=== PATIENT | male | born 1980 | race Caucasian/White ===

== ENCOUNTER 2018-12-16 02:50 | Emergency (ER) | payer BC ==
[2018-12-16] MEDS ORDERED: Morphine 4 MG/ML VIAL (1 ml) 4 MG/ML VIAL IV ONE (04:35)
[2018-12-16] MEDS ORDERED: NS 0.9% 1000 ML** 1,000 ML IV ONE (04:35)
[2018-12-16] MEDS ORDERED: Metoclopramide IV* 5 MG/ML 2 ML VIAL IV SLOW PU ONE (04:35)
[2018-12-16 05:04] LABS: ABS Eosinophils 0.1 10^3/ul (0-0.6); ABS Lymphocytes 1.3 10^3/ul (1.0-4.8); ABS Monocytes 0.6 10^3/ul (0-0.8); ABS Neutrophils 10.7 10^3/ul (1.5-7.7); Eosinophil % 0.4 %; Hematocrit 44 % (42-52); Hemoglobin 15.3 g/dL (14.0-18.0); Lymphocyte % 10.2 %; Mean Corpuscular HGB Conc 35 g/dL (31-36); Mean Corpuscular Hemoglobin 29 pg (27-31); Mean Corpuscular Volume 83 fL (80-94); Mean Platelet Volume 7.7 fL (7.4-10.4); Platelet Count 223 10^3/uL (150-450); Red Blood Count 5.32 10^6 /uL (4.18-5.48); Red Cell Distribution Width 13 % (10-15); White Blood Count 12.7 10^3/uL (3.5-10.8)
[2018-12-16 05:08] LABS: Activated Partial Thrombo Time 32.5 seconds (26.0-38.0); INR 1.07 (0.82-1.09)
--- NOTE | 2018-12-16 05:15 | ED ---
Abdominal Pain/Male - HPI Summary HPI Summary: Patient is a 38 y/o M presenting to ED with complaints of sudden onset RUQ abdominal pain with associated N/V. Sx onset yesterday, 12/15/18, at around 2300. Diarrhea is denied. Patient notes that he has travelled to [facility] in the past few weeks. He states that he has been taking Doxycycline prophylactically for malaria. Patient states that he was told to take a dose daily for a month and that he is finishing up his prescription in the next few days. He denies malaria diagnosis. He states that he had salad for dinner yesterday. Patient denies Hx of gallbladder issues. On triage, pain is rated 6/10, nothing is noted to aggravate/alleviate Sx. Home medications and allergies are reviewed. - History of Current Complaint Chief Complaint: EDAbdPain Stated Complaint: "ABD PAIN" PER PT Time Seen by Provider: 12/16/18 03:17 Hx Obtained From: Patient Onset/Duration: Sudden Onset, Lasting Hours - onset 2300 yesterday, Still Present Timing: Constant, Lasting Hours - onset 2300 yesterday Severity Currently: Moderate Pain Intensity: 6 Pain Scale Used: 0-10 Numeric Location: Discrete At: RUQ Aggravating Factor(s): Nothing Alleviating Factor(s): Nothing Associated Signs And Symptoms: Positive: Nausea, Vomiting. Negative: Fever - on vitals, temp is 96.7 F, Diarrhea - Allergies/Home Medications Allergies/Adverse Reactions: Allergies Allergy/AdvReac Type Severity Reaction Status Date / Time No Known Allergies Allergy Verified 12/16/18 04:21 PMH/Surg Hx/FS Hx/Imm Hx Cardiovascular History: Reports: Hx Hypertension - no medication GI History: Denies: Hx Gall Bladder Disease Sensory History: Denies: Hx Legally Blind, Hx Deafness Opthamlomology History: Denies: Hx Legally Blind EENT History: Denies: Hx Deafness Infectious Disease History: No Infectious Disease History: Reports: Traveled Outside the [place] in Last 30 Days Denies: Hx Clostridium Difficile, Hx Hepatitis, Hx Human Immunodeficiency Virus (HIV), Hx of Known/Suspected MRSA, Hx Shingles, Hx Tuberculosis, Hx Known/ Suspected VRE, Hx Known/Suspected VRSA, History Other Infectious Disease - Family History Known Family History: Negative: Hypertension, Diabetes - Social History Alcohol Use: Daily Alcohol Amount: 1-2 drinks daily Substance Use Type: Reports: None Smoking Status (MU): Former Smoker Length of Time of Smoking/Using Tobacco: 4 years Have You Smoked in the Last Year: No Review of Systems Negative: Fever - on vitals, temp is 96.7 F Positive: Abdominal Pain, Vomiting, Nausea. Negative: Diarrhea All Other Systems Reviewed And Are Negative: Yes Physical Exam - Summary Physical Exam Summary: VITAL SIGNS: Reviewed. GENERAL: Patient is a well-developed and nourished male who is lying comfortable in the stretcher. Patient is not in any acute respiratory distress. HEAD AND FACE: No signs of trauma. No ecchymosis, hematomas or skull depressions. No sinus tenderness. EYES: PERRLA, EOMI x 2, No injected conjunctiva, no nystagmus. EARS: Hearing grossly intact. Ear canals and tympanic membranes are within normal limits. MOUTH: Oropharynx within normal limits. NECK: Supple, trachea is midline, no adenopathy, no JVD, no carotid bruit, no c- spine tenderness, neck with full ROM CHEST: Symmetric, no tenderness at palpation LUNGS: Clear to auscultation bilaterally. No wheezing or crackles. CVS: Regular rate and rhythm, S1 and S2 present, no murmurs or gallops appreciated. ABDOMEN: Soft, RUQ tenderness. No signs of distention. No rebound no guarding, and no masses palpated. Bowel sounds are normal. EXTREMITIES: FROM in all major joints, no edema, no cyanosis or clubbing. NEURO: Alert and oriented x 3. No acute neurological deficits. Speech is normal and follows commands. SKIN: Dry and warm Triage Information Reviewed: Yes Vital Signs On Initial Exam: Initial Vitals Temp Pulse Resp BP Pulse Ox 96.7 F 69 15 167/112 97 12/16/18 03:03 12/16/18 03:03 12/16/18 03:03 12/16/18 03:03 12/16/18 03:03 Vital Signs Reviewed: Yes Diagnostics - Vital Signs Vital Signs Temp Pulse Resp BP Pulse Ox 12/16/18 04:42 69 156/108 95 12/16/18 04:41 18 12/16/18 04:13 68 97 12/16/18 04:12 66 165/111 95 12/16/18 03:03 96.7 F 69 15 167/112 97 - Laboratory Lab Results: Lab Results 12/16/18 Range/Units 04:53 WBC 12.7 H (3.5-10.8) 10^3/uL RBC 5.32 (4.18-5.48) 10^6 /uL Hgb 15.3 (14.0-18.0) g/dL Hct 44 (42-52) % MCV 83 (80-94) fL MCH 29 (27-31) pg MCHC 35 (31-36) g/dL RDW 13 (10-15) % Plt Count 223 (150-450) 10^3/uL MPV 7.7 (7.4-10.4) fL Neut % (Auto) 84.4 % Lymph % (Auto) 10.2 % [place] % (Auto) 4.7 % Eos % (Auto) 0.4 % Baso % (Auto) 0.3 % Absolute Neuts (auto) 10.7 H (1.5-7.7) 10^3/ul Absolute Lymphs (auto) 1.3 (1.0-4.8) 10^3/ul Absolute Monos (auto) 0.6 (0-0.8) 10^3/ul Absolute Eos (auto) 0.1 (0-0.6) 10^3/ul Absolute Basos (auto) 0.0 (0-0.2) 10^3/ul Absolute Nucleated RBC 0.0 10^3/ul Nucleated RBC % 0.0 Result Diagrams: 12/16/18 04:53 12/16/18 04:53 Lab Statement: Any lab studies that have been ordered have been reviewed, and results considered in the medical decision making process. - CT ABD/PEL CT CT Interpretation Completed By: Radiologist Summary of CT Findings: ABD/PEL CT IMPRESSION: 1. Mild dependent atelectasis in the lower lobes. 2. Fatty infiltration of the liver. 3. Otherwise negative CT abdomen/pelvis. THIS REPORT WAS REVIEWED BY DR. ANDERSON Abdominal Pain Male Course/Dx - Course Course Of Treatment: Patient is a 38 y/o M presenting to ED with complaints of sudden onset RUQ abdominal pain with associated N/V. Sx onset yesterday, 12/15/18 , at around 2300. Diarrhea is denied. Patient notes that he has travelled to [facility] in the past few weeks. He states that he has been taking Doxycycline prophylactically for malaria. Patient states that he was told to take a dose daily for a month and that he is finishing up his prescription in the next few days. He denies malaria diagnosis. He states that he had salad for dinner yesterday. Patient denies Hx of gallbladder issues. On physical exam, RUQ tenderness is noted. Labs showed WBC 12.7, absolute neuts 10.7, glucose 144, ALT 74, amylase 48, lipase 13. UA showed trace ketones. During ED course, patient received fluids, morphine 4 mg IV and reglan 10 mg IV SLOW PU. ABD/PEL CT IMPRESSION: 1. Mild dependent atelectasis in the lower lobes. 2. Fatty infiltration of the liver. 3. Otherwise negative CT abdomen/pelvis. Results of labs and tests were discussed with the patient, he will be discharged to home and follow up with PCP. He is agreeable with this. - Diagnoses Provider Diagnoses: Abdominal pain Discharge - Sign-Out/Discharge Documenting (check all that apply): Patient Departure - discharge Patient Received Moderate/Deep Sedation with Procedure: No - Discharge Plan Condition: Stable Disposition: HOME Patient Education Materials: Abdominal Pain (ED) Referrals: [facility] [Outside] - 3 Days Additional Instructions: MONITOR YOUR BLOOD PRESSURE. PLEASE RETURN TO THE ED IMMEDIATELY FOR WORSENING OR CONCERNING SYMPTOMS. FOLLOW UP WITH YOUR PRIMARY CARE PHYSICIAN WITHIN THREE DAYS. - Attestation Statements Document Initiated by Jennifer: Yes Documenting Scribe: RHODA OLSEN Provider For Whom Jennifer is Documenting (Include Credential): SERENITY ANDERSON MD Scribe Attestation: RHODA Kwon, scribed for SERENITY ANDERSON MD on 12/16/18 at 0642. Status of Scribe Document: Ready
[2018-12-16 05:19] LABS: Albumin 4.6 g/dL (3.2-5.2); Albumin/Globulin Ratio 1.7 (1-3); BUN/Creatinine Ratio 14.8 (8-20); C Reactive Protein 2.26 mg/L (<8.01); Calcium 9.5 mg/dL (8.6-10.3); EGFR African American 117.3 (>60); EGFR Non-African American 96.9 (>60); Globulin 2.7 g/dL (2-4); Magnesium 1.9 mg/dL (1.9-2.7); Potassium 3.5 mmol/L (3.5-5.0); Total Bilirubin 0.5 mg/dL (0.2-1.0); Total Protein 7.3 g/dL (6.4-8.9)
[2018-12-16] MEDS ORDERED: Iohexol 300* (CONTRAST) 10 ML SDV IV ONE (05:33)
[2018-12-16 06:33] LABS: Urine Appearance Clear; Urine Bilirubin Negative (Negative); Urine Blood Negative (Negative); Urine Color Straw; Urine Glucose Negative (Negative); Urine Ketones Trace (Negative); Urine Nitrite Negative (Negative); Urine Protein Negative (Negative); Urine Specific Gravity 1.036 (1.010-1.030); Urine Urobilinogen Negative (Negative)
[2018-12-16 06:43] VITALS: BP 150/91
== END 2018-12-16 06:51 | disposition home or self-care (01) ==
LOC: ED 02:50
DX: R10.11 Right upper quadrant pain (principal); R11.2 Nausea with vomiting, unspecified; Z87.891 Personal history of nicotine dependence; I10 Essential (primary) hypertension
CPT/HCPCS: 36415; 74177; 80053; 81003; 82150; 83690; 83735; 85025; 85610; 85730; 86140; 96361; 96374; 96375; 99282; J2270; J2765

== ENCOUNTER 2018-12-16 11:35 | Observation (INO) | payer BC ==
[2018-12-16 13:07] LABS: ABS Basophils 0.1 10^3/ul (0-0.2); ABS Lymphocytes 0.8 10^3/ul (1.0-4.8); ABS Monocytes 0.8 10^3/ul (0-0.8); Hematocrit 46 % (42-52); Lymphocyte % 5.1 %; Mean Corpuscular HGB Conc 35 g/dL (31-36); Mean Corpuscular Hemoglobin 29 pg (27-31); Mean Corpuscular Volume 82 fL (80-94); Mean Platelet Volume 7.6 fL (7.4-10.4); Nucleated Red Blood Cells % 0.1; Platelet Count 244 10^3/uL (150-450); Red Blood Count 5.59 10^6 /uL (4.18-5.48); Red Cell Distribution Width 13 % (10-15); White Blood Count 15.7 10^3/uL (3.5-10.8)
[2018-12-16 14:46] LABS: Albumin 4.7 g/dL (3.2-5.2); Calcium 9.7 mg/dL (8.6-10.3); Potassium 3.9 mmol/L (3.5-5.0); Total Bilirubin 0.8 mg/dL (0.2-1.0)
[2018-12-16 14:52] LABS: Albumin/Globulin Ratio 1.6 (1-3); BUN/Creatinine Ratio 11.6 (8-20); C Reactive Protein 12.15 mg/L (<8.01); EGFR African American 120.4 (>60); EGFR Non-African American 99.5 (>60); Total Protein 7.7 g/dL (6.4-8.9)
[2018-12-16 15:06] LABS: Urine Appearance Clear; Urine Bacteria Absent (Absent); Urine Bilirubin Negative (Negative); Urine Blood 2+ (Negative); Urine Color Yellow; Urine Glucose Negative (Negative); Urine Ketones Negative (Negative); Urine Nitrite Negative (Negative); Urine Protein Negative (Negative); Urine Red Blood Cell 3+(>10/hpf) (Absent); Urine Specific Gravity 1.025 (1.010-1.030); Urine Urobilinogen Negative (Negative); Urine White Blood Cell Trace(0-5/hpf) (Absent)
--- NOTE | 2018-12-16 15:39 | ED ---
Abdominal Pain/Male - HPI Summary HPI Summary: The patient is a 38 y/o M presenting to [facility] accompanied by with a chief complaint of gradual onset nausea and vomiting with abdominal pain in the suprapubic and RLQ regions since 2300 last night. He was in the ED at 0400 this morning for similar symptoms, but the abd pain was in the umbilical region, and since moved towards the RLQ. The sharp pain is currently rated 6/10 in severity , but can intermittently get worse. He additionally c/o decreased appetite and bilateral testicular pain. He denies fever, chills, erythema of eyes, sore throat, CP, SOB, cough, dysuria, hematuria, myalgia, back pain, edema, rash, and dizziness. Hx of HTN. No surgical hx. Former smoker, occasional EtOH, no substance use. Last meal was last night. - History of Current Complaint Chief Complaint: EDAbdPain Stated Complaint: ABD PAIN PER PT Time Seen by Provider: 12/16/18 15:12 Hx Obtained From: Patient Onset/Duration: Gradual Onset, Lasting Hours, Still Present Timing: Intermittent, Lasting Hours Severity Initially: Moderate Severity Currently: Moderate Pain Intensity: 6 Pain Scale Used: 0-10 Numeric Location: Suprapubic Radiates: Yes Radiates to: RLQ Character: Sharp Aggravating Factor(s): Food Alleviating Factor(s): Nothing Associated Signs And Symptoms: Positive: Decreased Appetite, Nausea, Vomiting, Other - POSITIVE: bilateral testicular pain; NEGATIVE: erythema of eyes, sore throat, SOB, cough, dysuria, hematuria, myalgia, back pain, edema, rash, dizziness. Negative: Fever, Cough, Chest Pain, Dizzy, Back Pain, Urinary Symptoms - Allergies/Home Medications Allergies/Adverse Reactions: Allergies Allergy/AdvReac Type Severity Reaction Status Date / Time No Known Allergies Allergy Verified 12/16/18 04:21 PMH/Surg Hx/FS Hx/Imm Hx Endocrine/Hematology History: Denies: Hx Diabetes Cardiovascular History: Reports: Hx Hypertension - no medication Respiratory History: Denies: Hx Asthma GI History: Denies: Hx Gall Bladder Disease History: Denies: Hx Kidney Stones Sensory History: Denies: Hx Legally Blind, Hx Deafness Opthamlomology History: Denies: Hx Legally Blind - Surgical History Surgical History: None Surgery Procedure, Year, and Place: none Infectious Disease History: No Infectious Disease History: Denies: Hx Clostridium Difficile, Hx Hepatitis, Hx Human Immunodeficiency Virus (HIV), Hx of Known/Suspected MRSA, Hx Shingles, Hx Tuberculosis, Hx Known/ Suspected VRE, Hx Known/Suspected VRSA, History Other Infectious Disease, Traveled Outside the [place] in Last 30 Days - Family History Known Family History: Negative: Hypertension, Diabetes - Social History Alcohol Use: Daily Alcohol Amount: 1-2 drinks daily Hx Substance Use: No Substance Use Type: Reports: None Hx Tobacco Use: Yes Smoking Status (MU): Former Smoker Length of Time of Smoking/Using Tobacco: 4 years Have You Smoked in the Last Year: No Review of Systems Negative: Fever, Chills Negative: Erythema Negative: Sore Throat Negative: Chest Pain Negative: Shortness Of Breath, Cough Positive: Abdominal Pain - suprapubic, RLQ, Vomiting, Nausea Positive: other - bilateral testicular pain. Negative: dysuria, hematuria Positive: Other - NEGATIVE: back pain. Negative: Myalgia, Edema Negative: Rash Neurological: Other - NEGATIVE: dizziness All Other Systems Reviewed And Are Negative: Yes Physical Exam - Summary Physical Exam Summary: Constitutional: Well-developed, Well-nourished, Alert. (-) Distressed Skin: Warm, Dry HENT: Normocephalic; Atraumatic Eyes: Conjunctiva normal Neck: Musculoskeletal ROM normal neck. (-) JVD, (-) Stridor, (-) Tracheal deviation Cardio: Rhythm regular, rate normal, Heart sounds normal; Intact distal pulses; The pedal pulses are 2+ and symmetric. Radial pulses are 2+ and symmetric. (-) Murmur Pulmonary/Chest wall: Effort normal. (-) Respiratory distress, (-) Wheezes, (-) Rales Abd: Soft, (+) Exquisite RLQ tenderness, (-) Distension, (-) Guarding, (-) Rebound Musculoskeletal: (-) Edema Lymph: (-) Cervical adenopathy Neuro: Alert, Oriented x3 Psych: Mood and affect Normal Exam: Normal Triage Information Reviewed: Yes Vital Signs On Initial Exam: Initial Vitals Temp Pulse Resp BP Pulse Ox 97.9 F 78 18 136/107 96 12/16/18 11:36 12/16/18 11:36 12/16/18 11:36 12/16/18 11:36 12/16/18 11:36 Vital Signs Reviewed: Yes Diagnostics - Vital Signs Vital Signs Temp Pulse Resp BP Pulse Ox 12/16/18 14:42 100.1 F 95 20 172/107 96 12/16/18 11:36 97.9 F 78 18 136/107 96 - Laboratory Lab Results: Lab Results 12/16/18 12/16/18 12/16/18 Range/Units 12:57 12:57 12:57 WBC 15.7 H (3.5-10.8) 10^3/uL RBC 5.59 H (4.18-5.48) 10^6 /uL Hgb 16.0 (14.0-18.0) g/dL Hct 46 (42-52) % MCV 82 (80-94) fL MCH 29 (27-31) pg MCHC 35 (31-36) g/dL RDW 13 (10-15) % Plt Count 244 (150-450) 10^3/uL MPV 7.6 (7.4-10.4) fL Neut % (Auto) 89.5 % Lymph % (Auto) 5.1 % [place] % (Auto) 4.9 % Eos % (Auto) 0.0 % Baso % (Auto) 0.5 % Absolute Neuts (auto) 14.0 H (1.5-7.7) 10^3/ul Absolute Lymphs (auto) 0.8 L (1.0-4.8) 10^3/ul Absolute Monos (auto) 0.8 (0-0.8) 10^3/ul Absolute Eos (auto) 0.0 (0-0.6) 10^3/ul Absolute Basos (auto) 0.1 (0-0.2) 10^3/ul Absolute Nucleated RBC 0.0 10^3/ul Nucleated RBC % 0.1 Sodium 135 (135-145) mmol/L Potassium 3.9 (3.5-5.0) mmol/L Chloride 100 L (101-111) mmol/L Carbon Dioxide 24 (22-32) mmol/L Anion Gap 11 (2-11) mmol/L BUN 10 (6-24) mg/dL Creatinine 0.86 (0.67-1.17) mg/dL Est GFR ( Amer) 120.4 (>60) Est GFR (Non-Af Amer) 99.5 (>60) BUN/Creatinine Ratio 11.6 (8-20) Glucose 150 H (70-100) mg/dL Lactic Acid 2.2 H* (0.5-2.0) mmol/L Calcium 9.7 (8.6-10.3) mg/dL Total Bilirubin 0.80 (0.2-1.0) mg/dL AST 36 (13-39) U/L ALT 76 H (7-52) U/L Alkaline Phosphatase 44 (34-104) U/L C-Reactive Protein 12.15 H (<8.01) mg/L Total Protein 7.7 (6.4-8.9) g/dL Albumin 4.7 (3.2-5.2) g/dL Globulin 3.0 (2-4) g/dL Albumin/Globulin Ratio 1.6 (1-3) Lipase 16 (11.0-82.0) U/L Urine Color Urine Appearance Urine pH (5-9) Ur Specific [place] (1.010-1.030) Urine Protein (Negative) Urine Ketones (Negative) Urine Blood (Negative) Urine Nitrate (Negative) Urine Bilirubin (Negative) Urine Urobilinogen (Negative) Ur Leukocyte Esterase (Negative) Urine WBC (Auto) (Absent) Urine RBC (Auto) (Absent) Urine Bacteria (Absent) Urine Glucose (Negative) 12/16/18 Range/Units 14:48 WBC (3.5-10.8) 10^3/uL RBC (4.18-5.48) 10^6 /uL Hgb (14.0-18.0) g/dL Hct (42-52) % MCV (80-94) fL MCH (27-31) pg MCHC (31-36) g/dL RDW (10-15) % Plt Count (150-450) 10^3/uL MPV (7.4-10.4) fL Neut % (Auto) % Lymph % (Auto) % [place] % (Auto) % Eos % (Auto) % Baso % (Auto) % Absolute Neuts (auto) (1.5-7.7) 10^3/ul Absolute Lymphs (auto) (1.0-4.8) 10^3/ul Absolute Monos (auto) (0-0.8) 10^3/ul Absolute Eos (auto) (0-0.6) 10^3/ul Absolute Basos (auto) (0-0.2) 10^3/ul Absolute Nucleated RBC 10^3/ul Nucleated RBC % Sodium (135-145) mmol/L Potassium (3.5-5.0) mmol/L Chloride (101-111) mmol/L Carbon Dioxide (22-32) mmol/L Anion Gap (2-11) mmol/L BUN (6-24) mg/dL Creatinine (0.67-1.17) mg/dL Est GFR ( Amer) (>60) Est GFR (Non-Af Amer) (>60) BUN/Creatinine Ratio (8-20) Glucose (70-100) mg/dL Lactic Acid (0.5-2.0) mmol/L Calcium (8.6-10.3) mg/dL Total Bilirubin (0.2-1.0) mg/dL AST (13-39) U/L ALT (7-52) U/L Alkaline Phosphatase (34-104) U/L C-Reactive Protein (<8.01) mg/L Total Protein (6.4-8.9) g/dL Albumin (3.2-5.2) g/dL Globulin (2-4) g/dL Albumin/Globulin Ratio (1-3) Lipase (11.0-82.0) U/L Urine Color Yellow Urine Appearance Clear Urine pH 7.0 (5-9) Ur Specific [place] 1.025 (1.010-1.030) Urine Protein Negative (Negative) Urine Ketones Negative (Negative) Urine Blood 2+ A (Negative) Urine Nitrate Negative (Negative) Urine Bilirubin Negative (Negative) Urine Urobilinogen Negative (Negative) Ur Leukocyte Esterase Negative (Negative) Urine WBC (Auto) Trace(0-5/hpf) (Absent) Urine RBC (Auto) 3+(>10/hpf) A (Absent) Urine Bacteria Absent (Absent) Urine Glucose Negative (Negative) Result Diagrams: 12/16/18 12:57 12/16/18 12:57 Lab Statement: Any lab studies that have been ordered have been reviewed, and results considered in the medical decision making process. - CT Abd/Pel CT CT Interpretation Completed By: Radiologist Summary of CT Findings: 1. Findings consistent with acute appendicitis. 2. Mild hepatomegaly and hepatic steatosis. ED physician has reviewed this report. - Ultrasound No standard instances Ultrasound Interpretation Completed By: Radiologist Summary of Ultrasound Findings: Gallbladder US: 1. Small gallbladder wall polyp. 2. Findings suggestive of fatty infiltration of the liver with focal sparing adjacent to the gallbladder. ED physician has reviewed this report. Re-Evaluation - Re-Evaluation First Eval Re-Evaluation Time: 16:00 Comment: I discussed admission with the patient and his , and they understand and agree. Abdominal Pain Male Course/Dx - Course Course Of Treatment: The patient is a 38 y/o M presenting to [facility] accompanied by with a chief complaint of sharp gradual onset nausea and vomiting with abdominal pain in the suprapubic and RLQ regions since 2300 last night with movement to the RLQ. He additionally c/o decreased appetite and bilateral testicular pain. He denies fever, chills, erythema of eyes, sore throat, CP, SOB , cough, dysuria, hematuria, myalgia, back pain, edema, rash, and dizziness. No surgical hx. Upon physical exam, the patient exhibits exquisite RLQ tenderness. In the ED course, the patient was administered Ns, Zofran, Iohexol (for CT), Mefoxin, and Tyelnol. Blood work reveals WBC of 15.7, RBC of 5.59, abs neuts of 14.0, abs lymphs of 0.8, chloride of 100, glucose of 150, lactic acid of 2.2, ALT of 76, and CRP of 12.15 without any other significant abnormality. UA reveals 2+ blood and 3+ RBC. Gallbladder US reveals small gallbladder wall polyp and fatty infiltration of liver. Abd/Pel CT reveals acute appendicitis, mild hepatomegaly, and hepatic steatosis. At 1545, I discussed the patients case with Dr. Fischer, surgery, and he is made aware of the appendicitis finding , he accepts the patient for admission for acute appendicitis. The patient agrees with admission for surgery, and he understands the need at this time. - Diagnoses Provider Diagnoses: Acute appendicitis - Provider Notifications Discussed Care Of Patient With: Herbert Fischer - surgery Time Discussed With Above Provider: 15:45 Instructed by Provider To: Other - I discussed the patient's case wtih Dr. Fischer, and he is aware of the appendicitis finding. The patient is accepted for admission. Discharge - Sign-Out/Discharge Documenting (check all that apply): Patient Departure - Patient is accepted for admission by Dr. Fischer. Patient Received Moderate/Deep Sedation with Procedure: No - Discharge Plan Condition: Stable Disposition: ADMITTED TO [facility] - Billing Disposition and Condition Condition: STABLE Disposition: Admitted to [facility] - Attestation Statements Document Initiated by Scribe: Yes Documenting Scribe: Luci Ruiz Provider For Whom Scribe is Documenting (Include Credential): Dr. Bowen España MD Scribe Attestation: Luci Kwon scribed for Dr. Bowen España MD on 12/16/18 at 1905. Status of Scribe Document: Ready
[2018-12-16] MEDS ORDERED: NS 0.9% 1000 ML** 1,000 ML IV ONE (15:45)
[2018-12-16] MEDS ORDERED: ceFOXitin 2 GM IVPREMIX* 2 GM/50 ML BAG IVPB ONE (15:45)
[2018-12-16] MEDS ORDERED: Ondansetron INJ* 2 MG/ML VIAL IV ONE (16:07)
[2018-12-16] MEDS ORDERED: Iohexol 300* (CONTRAST) 10 ML SDV IV ONE (16:56)
[2018-12-16] MEDS ORDERED: Acetaminophen TAB* 325 MG PO ONE (17:54)
[2018-12-16] MEDS ORDERED: Bupivacaine 0.5%* 50 ML VIAL ONE (19:00)
[2018-12-16] MEDS ORDERED: Propofol* 10 MG/ML 20 ML BTL ONE (19:15)
[2018-12-16] MEDS ORDERED: Lidocaine 2% PF * 5 ML VIAL ONE (19:15)
[2018-12-16] MEDS ORDERED: Succinylcholine* 20 MG/ML 10 ML VIAL ONE (19:15)
[2018-12-16] MEDS ORDERED: Midazolam* 1 MG/ML 2 ML VIAL (2 MG) ONE (19:16)
[2018-12-16] MEDS ORDERED: fentaNYL* 50 MCG/ML 2 ML VIAL (100 MCG VIAL) ONE ×2 (19:16→20:52)
[2018-12-16] MEDS ORDERED: ceFOXitin 2 GM IVPREMIX* 2 GM/50 ML BAG ONE (19:30)
[2018-12-16] MEDS ORDERED: Rocuronium* 10 MG/ML VIAL ONE (20:04)
[2018-12-16] MEDS ORDERED: Dexamethasone IV* 4 MG/ML 1 ML (4 MG) ONE (20:20)
[2018-12-16] MEDS ORDERED: Ketorolac INJ* 30 MG/ML 1 ML VIAL ONE (20:20)
[2018-12-16] MEDS ORDERED: Metoclopramide IV* 5 MG/ML 2 ML VIAL ONE (20:20)
[2018-12-16] MEDS ORDERED: Ondansetron INJ* 2 MG/ML VIAL ONE (20:20)
[2018-12-16] MEDS ORDERED: Sugammadex * 200 MG/2 ML VIAL IV PUSH ONE (20:23)
[2018-12-16] MEDS ORDERED: Glycopyrrolate IV* 0.2 MG/ML 1 ML VIAL ONE (20:37)
[2018-12-16] MEDS ORDERED: Neostigmine Methylsulfate* 1 MG/ML 10 ML VIAL (1 mg/ml) ONE (20:37)
[2018-12-16] MEDS ORDERED: Acetaminophen TAB* 325 MG PO PRN (21:13)
[2018-12-16] MEDS ORDERED: diPHENhydraMINE IV* 50 MG/ML 1 ml VIAL (BENADRYL) IV PRN (21:13)
[2018-12-16] MEDS ORDERED: fentaNYL* 50 MCG/ML 2 ML VIAL (100 MCG VIAL) IV PRN (21:13)
[2018-12-16] MEDS ORDERED: Naloxone* 0.4 MG/ML 1 ML VIAL IV PRN (21:13)
[2018-12-16] MEDS ORDERED: oxyCODONE TAB* 5 MG TAB PO PRN (21:13)
[2018-12-16] MEDS ORDERED: DiMENhydriNATE IV* 50 MG/ML VIAL IV PUSH PRN (21:13)
[2018-12-16] MEDS ORDERED: Labetalol IV* 5 MG/ML 20 ML VIAL IV PUSH ONE (21:15)
[2018-12-16] MEDS ORDERED: Labetalol IV* 5 MG/ML 20 ML VIAL ONE (21:18)
--- NOTE | 2018-12-16 21:26 | HP ---
CC: Dr. Eliana Palmer at [facility] * ADMISSION HISTORY AND PHYSICAL: DATE OF ADMISSION: 12/16/18 ATTENDING SURGEON: Dr. Herbert Fischer * (YAMILET Funes, dictating). CHIEF COMPLAINT: Abdominal pain. The patient was initially seen in the ED. HISTORY OF PRESENT ILLNESS: This is a generally healthy 38-year-old male who noted onset of upper abdominal pain around 11 p.m. last evening. This was accompanied by nausea and vomiting which seemed to since have subsided. He also reports some fever and chills. The pain had moved from the upper abdomen to the mid abdomen and then eventually to the right lower quadrant where it has remained. He presented to the ED and had an IV contrast only CT scan of the abdomen and pelvis which had noted the presence of fecalith, but no definitive finding of appendicitis or otherwise. He was discharged. His pain persisted and he returned to the ED this time with having an oral and IV contrast CT which does show an enlarged appendix with interstitial stranding in the periappendiceal fat consistent with acute appendicitis. There is no evidence of abscess. The patient states that peak pain was 8/10, and at present it is 5-6/10. He has not had any other similar episodes. He has not had any prior abdominal surgeries. His last bowel movement was yesterday evening and otherwise normal. He had last eaten solid food last evening. There is no suspect food ingestion. He did return from travel to [facility] on 12/01/18 and is still taking doxycycline for malaria prophylaxis. PAST MEDICAL HISTORY: Previously treated for hypertension, but not at present. Migraine headaches. PAST SURGICAL HISTORY: His only previous surgery has been dental extractions. CURRENT MEDICATIONS: Doxycycline 100 mg once daily. DRUG ALLERGIES: None known. FAMILY HISTORY: Negative for anesthesia problems, bleeding, or clotting disorders. SOCIAL HISTORY: The patient is . He has two children. 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 He did smoke for a few years after college, but not since age 23 other than occasional social settings. He drinks on an average 1 to 2 drinks per day. He denies any other recreational drug use. REVIEW OF SYSTEMS: General: No other recent constitutional symptoms other than per the HPI. HEENT: No problems reported. Cardiovascular: No history of chest pain, palpitations, or heart murmur. Previously treated for hypertension, but not at present. Respiratory: No history of asthma, chronic cough, or shortness of breath. GI: As above per HPI. No additions. : I did not enquire specifically about symptoms. Endocrine: No diabetes or thyroid dysfunction. PHYSICAL EXAMINATION GENERAL: A well-nourished, somewhat obese male, in no acute distress. He actually appears somewhat comfortable. Skin warm and dry. No suspicious rashes or lesions. VITAL SIGNS: Height 5 feet 7 inches, weight 200 pounds, BMI 31. Temperature max 100.9, blood pressure 149/93, pulse 96, respirations 24, room air saturation 96%. HEENT: Pupils are equal, round, reactive. EOMs intact. No conjunctival pallor. Oropharynx: Mucous membranes dry. Teeth in good repair. No intraoral lesions. NECK: No lymphadenopathy, thyromegaly, or masses. LUNGS: Clear to auscultation. No rales or wheezes. HEART: Regular rate and rhythm. No murmur appreciated. ABDOMEN: Obese. Bowel sounds present, but somewhat hypoactive. Soft with tenderness in the right lower quadrant with guarding. No palpable mass. The remainder of the abdomen is soft and nontender and without palpable hepatosplenomegaly. No palpable inguinal hernias. GENITALIA: Otherwise not examined. RECTAL: Not done. BACK: No spinous process or CVA tenderness. EXTREMITIES: No edema. NEUROLOGICAL: Grossly intact. LABORATORY DATA: White blood cell count 15,700 with normal differential, hemoglobin 16. Chemistries essentially normal with the exceptions of glucose of 150, lactic acid mildly elevated at 2.2, ALT 76. CRP mildly elevated at 12. Lipase is normal at 16. Urinalysis was remarkable for 2+ blood. CT of the abdomen and pelvis with oral and IV contrast was reviewed personally and shows borderline enlarged appendix with periappendiceal interstitial stranding consistent with acute appendicitis. No abscess noted. IMPRESSION: Acute appendicitis. PLAN: Laparoscopic appendectomy pending confirmation of exam and plan by Dr. Fischer. YAMILET FUNES [id number]/[facility] #: [id number] [facility] HOSPITALAsaf
--- NOTE | 2018-12-16 21:34 | OP ---
DATE OF OPERATION: 12/16/18 - ROOM #349 DATE OF : 80 SURGEON: Herbert Fischer MD. PRE-OP DIAGNOSIS: Appendicitis. POST-OP DIAGNOSIS: Appendicitis. OPERATIVE PROCEDURE: Laparoscopic appendectomy. INDICATIONS FOR PROCEDURE: Appendicitis. Risks including, but not limited to bleeding, infection, injury to intra-abdominal contents including the bowel were explained to the patient who seemed to understand and agreed to the procedure and all questions were answered. DESCRIPTION OF PROCEDURE: In the operating room, in the supine position under general endotracheal anesthesia, the abdomen was prepped and draped in sterile fashion. Time-out was performed indicating correct patient, correct procedure. A 5 mm trocar was placed in the left lower quadrant under direct visualization of the camera using a bladeless Optiview trocar. Pneumoperitoneum was achieved to 15 mmHg. The camera was placed in the abdomen and the abdomen was scanned. There was no obvious injury from trocar placement. A 12 mm infraumbilical and 5 mm suprapubic trocar were placed. The patient was placed in a Trendelenburg position, tilted slightly towards the left. An acutely inflamed appendix was elevated. The base was isolated and divided with a 45 mm stapler. The mesoappendix was divided with another staple load, this time a silver load. The appendix was placed into an Endobag and removed through the umbilical port site. The right lower quadrant was inspected. EBL minimal. Hemostasis was intact. There was no abscess or purulence. The abdomen was scanned. No obvious injury or abnormalities were noted. The omentum was placed over the appendix site/cecum/right lower quadrant. Pneumoperitoneum was released from the abdomen, the trocars were removed, and the skin was closed with Monocryl and glue. He tolerated the procedure well. He was extubated and taken to the Recovery in stable condition. [id number]/[facility] #: [id number] [facility]ENTERAs[facility]
[2018-12-16] MEDS ORDERED: Ondansetron INJ* 2 MG/ML VIAL IV PRN (22:30)
[2018-12-16] MEDS ORDERED: Ibuprofen TAB* 800 MG PO PRN (22:30)
[2018-12-16] MEDS ORDERED: Ibuprofen TAB* 800 MG PO ONE (23:47)
[2018-12-17] MEDS: oxyCODONE/Acetamin 5/325 MG* TAB PO PRN ×2 (01:19→06:21)
--- NOTE | 2018-12-17 01:35 | PN ---
Progress Note - Progress Note Date of Service: 12/17/18 Note: CAT Ca;;: Patient got up for first time since surgery last evening - POD #1 for appendectomy last evening. Lightheaded, dizzy and had syncopal episode along with loose stools. Vitals: BP soft. Required labetolol in PACU for elevated BP. Does not take antihypertensives. 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
[2018-12-17] MEDS ORDERED: NS 0.9% 1000 ML** 1,000 ML IV ONE (02:00)
[2018-12-17] MEDS ORDERED: ceFOXitin 2 GM IVPREMIX* 2 GM/50 ML BAG IVPB ONE (08:00)
--- NOTE | 2018-12-17 09:37 | PN ---
Progress Note - Progress Note Date of Service: 12/17/18 SOAP: Subjective: []flatus/loose bm last night with "vasovagal" event, none since, had breakfast, alittle "bloated and uncomfortable" Objective: [] Temp Pulse Resp BP Pulse Ox 98.2 F 68 16 124/79 95 12/17/18 07:50 12/17/18 07:50 12/17/18 08:21 12/17/18 07:50 12/17/18 07:50 abdomen soft moderate distension, incisional tenderness, incisions cdi Assessment: [] stable, s/p lap appendectomy, slow to recover and get full return bowel fxn Plan: []continue current regimen, dc abx, home later today if continues to improve
[2018-12-17 12:06] VITALS: BP 142/86
--- NOTE | 2018-12-17 13:15 | DS ---
CC: Dr. Eliana Palmer [facility] * DISCHARGE SUMMARY: DATE OF ADMISSION: 12/16/18 DATE OF DISCHARGE: 12/17/18 ATTENDING SURGEON: Dr. Herbert Fischer.* (DICTATED BY YAMILET VILCHIS) HOSPITAL COURSE: The patient was admitted and taken to the operating room on for laparoscopic appendectomy for acute nonruptured appendicitis (see history and physical and operative note for details). The surgery itself was uneventful. It was decided to keep the patient overnight. He did have an event around 2 a.m. when he was getting up and he felt dizzy. The nurse and the patient's helped him sit down in the bed, but he did have a syncopal episode and slid from the bed to the floor and had an episode of diarrhea. He had no injury. He was syncopal for a minute according to the nurses' note. CAT team was called, at which time the patient was already back in bed and conscious and conversing. See separate CAT documentation. Since that time, the patient's vital signs have been stable. When seen on rounds this morning, the patient had still not been up much out of bed and was feeling fairly uncomfortable. Since then, he has had Percocet orally. He tolerated breakfast well and his vital signs have been stable. Last vital signs showed temperature 98.2, blood pressure 124/79, pulse 68, respirations 14, room air saturation 95% (see separate progress note from the same date for exam by Dr. Fischer). IMPRESSION: Status post laparoscopic appendectomy for acute appendicitis, doing well. PLAN: Home today. Instructions were reviewed regarding activity, wound care, and diet. Followup is scheduled for 12/25/18 in our office. DISCHARGE CONDITION: The patient was discharged to home in good condition. YAMILET VILCHIS [id number]/[facility] #: [id number] [facility]ITALAs[facility]
== END 2018-12-17 12:55 | disposition home or self-care (01) ==
LOC: ED 11:35 → OR 18:49 → SSU 21:25
PROVIDERS: ADMIT Surgery; ATTEND Surgery
DX: K37 Unspecified appendicitis (principal); R10.9 Unspecified abdominal pain; R11.2 Nausea with vomiting, unspecified; I10 Essential (primary) hypertension; Z87.891 Personal history of nicotine dependence; N50.812 Left testicular pain; N50.811 Right testicular pain
CPT/HCPCS: 36415; 74177; 76705; 80053; 81003; 81015; 83605; 83690; 85025; 86140; 87086; 88304; 93005; 99283; A9270-GY; G0378; J0330; J0694; J1100; J1885; J2250; J2405; J2704; J2710; J2765; J3010; J3490; Q9967

== ENCOUNTER 2018-12-21 19:33 | Observation (INO) | payer BC ==
--- OUTSIDE RECORDS SUMMARY | 2018-12-21 19:52 | XMS REPORT | Continuity of Care Document ---
:1980 External Reference #:[id number] Author Name Jessica Bartlett Care Team Providers Name Role Phone Herbert Fischer MD Care Team Information Director Product Development Unavailable Payers Date Identification Numbers Payment Provider Subscriber Policy Number: [id number] [employer] [facility] PayID: [id number] [address] [address] [place] [address] Social History Type Date Description Comments Sex Unknown Procedures Date Code Description Status 12/16/2018 10748 Laparoscopy, Surgical, Appendectomy Completed Plan of Treatment Future Appointment(s):12/25/2018 3:30 pm - Evangelina Johns NP at [facility]
--- NOTE | 2018-12-21 20:59 | ED ---
HPI Febrile Illness - HPI Summary HPI Summary: This patient is a 38 year old M presenting to [facility] accompanied by his with a chief complaint of a post-operative fever of 102.2 this evening at home. Patient had an emergency appendectomy on 12/16/18 and was discharged the next day. Reports fatigue for the past few days worsening today with fever. Patient called Dr. Hill, surgeon, who recommended he come to the ED if fever reached 102F. He has taken Motrin at home this morning. Reports mild RLQ abdominal pain that has slightly worsened today since the surgery. Denies vomiting and diarrhea, cough, and sore throat. - History of Current Complaint Chief Complaint: EDFever Time Seen by Provider: 12/21/18 20:41 Hx Obtained From: Patient, Family/Cylinder Dyer Onset/Duration: Started Hours Ago Timing: Constant Temperature: 102.2 F Pain Intensity: 4 Pain Scale Used: 0-10 Numeric Associated Signs and Symptoms: Other: - abdominal pain - Additional Pertinent History Primary Care Physician: CARLOTA - Allergy/Home Medications Allergies/Adverse Reactions: Allergies Allergy/AdvReac Type Severity Reaction Status Date / Time No Known Allergies Allergy Verified 12/16/18 04:21 PMH/Surg Hx/FS Hx/Imm Hx Endocrine/Hematology History: Denies: Hx Diabetes Cardiovascular History: Reports: Hx Hypertension - no medication Respiratory History: Denies: Hx Asthma GI History: Denies: Hx Gall Bladder Disease History: Denies: Hx Kidney Stones Sensory History: Denies: Hx Contacts or Glasses, Hx Legally Blind, Hx Deafness, Hx Hearing Aid Opthamlomology History: Denies: Hx Contacts or Glasses, Hx Legally Blind - Surgical History Surgery Procedure, Year, and Place: 12/16/18 - Appendectomy Infectious Disease History: No Infectious Disease History: Reports: Traveled Outside the [place] in Last 30 Days Denies: Hx Clostridium Difficile, Hx Hepatitis, Hx Human Immunodeficiency Virus (HIV), Hx of Known/Suspected MRSA, Hx Shingles, Hx Tuberculosis, Hx Known/ Suspected VRE, Hx Known/Suspected VRSA, History Other Infectious Disease - Family History Known Family History: Negative: Hypertension, Diabetes - Social History Alcohol Use: Daily Alcohol Amount: A glass of wine with dinner Hx Substance Use: No Substance Use Type: Reports: None Hx Tobacco Use: Yes Smoking Status (MU): Former Smoker Length of Time of Smoking/Using Tobacco: 4 years Have You Smoked in the Last Year: No Review of Systems Positive: Fever Negative: Sore Throat Negative: Cough Positive: Abdominal Pain. Negative: Vomiting, Diarrhea, Nausea All Other Systems Reviewed And Are Negative: Yes Physical Exam - Summary Physical Exam Summary: VITAL SIGNS: Reviewed. GENERAL: Patient is a well-developed and nourished male who is lying comfortable in the stretcher. Patient is not in any acute respiratory distress. HEAD AND FACE: No signs of trauma. No ecchymosis, hematomas or skull depressions. No sinus tenderness. EYES: PERRLA, EOMI x 2, No injected conjunctiva, no nystagmus. EARS: Hearing grossly intact. Ear canals and tympanic membranes are within normal limits. MOUTH: Oropharynx within normal limits. NECK: Supple, trachea is midline, no adenopathy, no JVD, no carotid bruit, no c- spine tenderness, neck with full ROM CHEST: Symmetric, no tenderness at palpation LUNGS: Clear to auscultation bilaterally. No wheezing or crackles. CVS: Regular rate and rhythm, S1 and S2 present, no murmurs or gallops appreciated. ABDOMEN: Soft, RLQ tenderness. No signs of distention. No rebound no guarding, and no masses palpated. Bowel sounds are normal. EXTREMITIES: FROM in all major joints, no edema, no cyanosis or clubbing. NEURO: Alert and oriented x 3. No acute neurological deficits. Speech is normal and follows commands. SKIN: Dry and warm Triage Information Reviewed: Yes Vital Signs On Initial Exam: Initial Vitals Temp Pulse Resp BP Pulse Ox 100.9 F 102 18 146/94 97 12/21/18 19:44 12/21/18 19:44 12/21/18 19:44 12/21/18 19:44 12/21/18 19:44 Vital Signs Reviewed: Yes Diagnostics - Vital Signs Vital Signs Temp Pulse Resp BP Pulse Ox 12/21/18 19:44 100.9 F 102 18 146/94 97 - Laboratory Result Diagrams: 12/21/18 21:31 12/21/18 21:31 Lab Statement: Any lab studies that have been ordered have been reviewed, and results considered in the medical decision making process. - Radiology CXR Radiology Interpretation Completed By: ED Physician Summary of Radiographic Findings: No acute process. Pending offical report. - CT A/P CT CT Interpretation Completed By: Radiologist Summary of CT Findings: Moderate amount of hyperdense fluid below the cecum extending into the upper quadrants bilaterally as well as the pelvis. Dominant collection below the cecum measures up to 4.8 x 4.4 cm. Findings are likely consistent with. hemoperitoneum, somewhat greater than would be expected for 5 days postop. Followup with surgical consult should be considered. ED Physician has reviewed this report. Course/Dx - Course Course Of Treatment: 38 year old M presenting to [facility] accompanied by his with a chief complaint of a post-operative fever of 102.2 this evening at home. Reports mild RLQ abdominal pain that has slightly worsened today since the surgery. Patient is given Tylenol and IVF. UA and bloodwork obtained revealing Hgb of 11.6 and Hct of 33. CT A/P reveals, " Moderate amount of hyperdense fluid below the cecum extending into the upper quadrants bilaterally as well as the pelvis. Dominant collection below the cecum measures up to 4.8 x 4.4 cm. Findings are likely consistent with. hemoperitoneum, somewhat greater than would be expected for 5 days postop. Followup with surgical consult should be considered." Case discussed with Dr. Hill, surgery, who agrees to admit this patient and will begin to place orders. Results and plan discussed with patient. - Diagnoses Provider Diagnoses: Hemoperitoneum - Provider Notifications Discussed Care Of Patient With: Say Hill - surgeon Time Discussed With Above Provider: 12:20 Instructed by Provider To: Admit As Inpatient Discharge - Sign-Out/Discharge Documenting (check all that apply): Patient Departure - admit Patient Received Moderate/Deep Sedation with Procedure: No - Discharge Plan Condition: Stable Disposition: ADMITTED TO [facility] Referrals: Eliana Palmer MD [Primary Care Provider] - - Attestation Statements Document Initiated by Scribe: Yes Documenting Scribe: Kiersten Castillo Provider For Whom Jennifer is Documenting (Include Credential): Flor Dick MD Scribe Attestation: Kiersten Kwon, ashed for Flor Dick MD on 12/22/18 at 0020. Status of Scribe Document: Ready
[2018-12-21] MEDS ORDERED: Acetaminophen TAB* 325 MG PO ONE (21:07)
[2018-12-21] MEDS ORDERED: NS 0.9% 1000 ML** 1,000 ML IV ONE (21:07)
[2018-12-21 21:34] LABS: Urine Appearance Clear; Urine Bacteria Absent (Absent); Urine Bilirubin Negative (Negative); Urine Blood 1+ (Negative); Urine Color Straw; Urine Glucose Negative (Negative); Urine Ketones Negative (Negative); Urine Nitrite Negative (Negative); Urine Protein Negative (Negative); Urine Red Blood Cell Trace(0-2/hpf) (Absent); Urine Specific Gravity 1.006 (1.010-1.030); Urine Urobilinogen Negative (Negative); Urine White Blood Cell Absent (Absent)
[2018-12-21 21:39] LABS: ABS Eosinophils 0.1 10^3/ul (0-0.6); ABS Monocytes 1.1 10^3/ul (0-0.8); ABS Neutrophils 7.4 10^3/ul (1.5-7.7); Eosinophil % 0.8 %; Hematocrit 33 % (42-52); Hemoglobin 11.6 g/dL (14.0-18.0); Lymphocyte % 10.7 %; Mean Corpuscular HGB Conc 35 g/dL (31-36); Mean Corpuscular Hemoglobin 29 pg (27-31); Mean Corpuscular Volume 83 fL (80-94); Nucleated Red Blood Cells % 0.1; Platelet Count 294 10^3/uL (150-450); Red Blood Count 4.01 10^6 /uL (4.18-5.48); Red Cell Distribution Width 14 % (10-15); White Blood Count 9.6 10^3/uL (3.5-10.8)
[2018-12-21 21:59] LABS: Albumin 4.5 g/dL (3.2-5.2); Albumin/Globulin Ratio 1.4 (1-3); BUN/Creatinine Ratio 14.1 (8-20); C Reactive Protein 67.92 mg/L (<8.01); Calcium 9.6 mg/dL (8.6-10.3); EGFR African American 111.4 (>60); EGFR Non-African American 92.1 (>60); Globulin 3.3 g/dL (2-4); Potassium 3.8 mmol/L (3.5-5.0); Total Bilirubin 1.3 mg/dL (0.2-1.0); Total Protein 7.8 g/dL (6.4-8.9)
[2018-12-21] MEDS ORDERED: Iohexol 300* (CONTRAST) 10 ML SDV IV ONE (22:20)
[2018-12-22] MEDS ORDERED: HYDROmorphone INJ* 0.5 MG/0.5 ML SYRINGE IV SLOW PU PRN (00:20)
[2018-12-22] MEDS ORDERED: Acetaminophen TAB* 325 MG PO PRN (00:20)
[2018-12-22] MEDS ORDERED: oxyCODONE/Acetamin 5/325 MG* TAB PO PRN (00:20)
[2018-12-22] MEDS ORDERED: NS 0.9% 1000 ML** 1,000 ML IV SCH (00:30)
[2018-12-22 05:25] LABS: ABS Eosinophils 0.1 10^3/ul (0-0.6); ABS Lymphocytes 1.3 10^3/ul (1.0-4.8); ABS Monocytes 1.4 10^3/ul (0-0.8); ABS Neutrophils 7.7 10^3/ul (1.5-7.7); Eosinophil % 0.8 %; Hematocrit 30 % (42-52); Hemoglobin 10.7 g/dL (14.0-18.0); Lymphocyte % 12.7 %; Mean Corpuscular HGB Conc 36 g/dL (31-36); Mean Corpuscular Hemoglobin 29 pg (27-31); Mean Corpuscular Volume 82 fL (80-94); Mean Platelet Volume 7.4 fL (7.4-10.4); Platelet Count 274 10^3/uL (150-450); Red Blood Count 3.64 10^6 /uL (4.18-5.48); Red Cell Distribution Width 13 % (10-15); White Blood Count 10.5 10^3/uL (3.5-10.8)
[2018-12-22 05:28] LABS: INR 1.31 (0.82-1.09)
[2018-12-22 05:33] LABS: Calcium 9.3 mg/dL (8.6-10.3); EGFR Non-African American 116.6 (>60); Potassium 3.8 mmol/L (3.5-5.0)
--- NOTE | 2018-12-22 11:37 | HP ---
CC: Eliana Palmer MD * HISTORY AND PHYSICAL: DATE OF ADMISSION: 12/22/18 REASON FOR ADMISSION: Fever and abdominal distention/pain. HISTORY OF PRESENT ILLNESS: Mr. Young Kaiser is a healthy 38-year-old gentleman who underwent a laparoscopic appendectomy on 12/16/[address] Fischer for acute suppurative appendicitis. The case noted no evidence of perforation or abscess and he spent one night in the hospital and was just discharged home on Sunday. His called the answering service later in the day yesterday and I talked with and in my discussion with her, she stated that he had not been recovering as well as he thought he should have over the past several days, having some abdominal distention and also noted to have a fever of 100.8 after they had gone on a small walk. He has been having no shakes or chills and nausea or vomiting, but felt somewhat distended. He is having 1 small loose bowel movement per day. He had no back discomfort or urinary complaints. After discussion, the plan was to see how he did overnight and I was going to see him in the office on Sunday for evaluation and possible outpatient blood work, but later in the evening last night, he developed a fever over 102, which brought him to the emergency room. When initially seen in the emergency room, he was noted to have a temperature of 100.9. Initial heart rate was in the 80s and 90s, blood pressure was stable , and he was in no apparent distress. Laboratory workup included a white blood cell count of 9.6 with a hemoglobin of 11.6. It should be noted that his preoperative hemoglobin was 16. There was no left shift. He had a normal platelet count. Electrolytes, BUN, and creatinine within normal limits. He had a total bilirubin of 1.3 and a C- reactive protein of 67.9. Lactic acid was 0.8. In light of his fever and abdominal distention, he underwent a CT scan of the abdomen and pelvis. I did review these images. This shows some small amount of fluid around the liver, an area of hyperdense fluid around the cecum measuring 5 x 4.5 cm as well as some fluid into the pelvis. This did not appear to be an abscess. There was no extraluminal air and felt most likely to be consistent with hemoperitoneum. In light of these findings and his drop in hemoglobin and clinical symptoms, he was admitted for overnight observation. PAST MEDICAL HISTORY: 1. Hypertension, but not on medicine. 2. Migraine headaches. PAST SURGERY HISTORY: Laparoscopic appendectomy. CURRENT MEDICATIONS: Include doxycycline. This was done for malaria prophylaxis after a recent trip to [facility]. ALLERGIES: He has no known drug allergies. SOCIAL HISTORY: He is . He has 2 children. 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 He quit smoking at age 23. He drinks 1 to 2 drinks per day. He denies recreational drug use. REVIEW OF SYSTEMS: No other recent constitutional symptoms, other than described above. There has been no jaundice. Pulmonary: No wheezing or hemoptysis. Cardiovascular: No chest pain, shortness of breath, or palpitations. GI: No chronic abdominal discomfort or change in bowel habits. Endocrine: No diabetes or thyroid dysfunction. PHYSICAL EXAMINATION GENERAL: He is a well-developed, well-nourished male, appears to be in no apparent distress. VITAL SIGNS: Temperature 98.6, pulse 84, blood pressure 128/72. HEENT: Oral mucosa is slightly dry. LUNGS: Clear to auscultation with normal respiratory effort. HEART: Regular rate and rhythm without murmurs, rubs, or gallops. ABDOMEN: Soft and slightly distended. He had normoactive bowel sounds throughout. He has 3 well-healed laparoscopic incisions with some ecchymoses in the abdominal wall, but no obvious hematomas. There is no rebound, guarding, or peritoneal irritation. He has some mild tenderness in the lower abdominal quadrants. PSYCHIATRIC: He is awake, alert, and oriented x3. He has normal judgment and insight. IMPRESSION: Status post laparoscopic appendectomy on 12/16/18. He returned with a low-grade fever, but normal white blood cell count. There is a slight drop in hemoglobin of approximately 4 g since his admission. His hemoglobin was repeated 6 hours after admission and it was 10.7, which is probably to be expected after hydration. He has remained hemodynamically stable with a heart rate in the 70s and 80s and has no dizziness, lightheadedness, or symptoms upon ambulation to suggest active bleeding. I suspect the findings on the CT scan are that of postoperative hemorrhage, but I do not suspect continued active bleeding. There is no evidence of an intra- abdominal abscess requiring IV antibiotics or further intervention. PLAN: 1. The patient has been admitted overnight for observation and repeat hemoglobin, which appears to have been stable. 2. His diet will be advanced to regular as tolerated. 3. We will increase activity and see how he does here over the next 2 to 4 hours and if he tolerates lunch without difficulty, he will be discharged home. 4. He has a followup appointment on Sunday with Dr. Fischer, who will follow him at that time. 5. I discussed all of the above with the patient and his , who was present at the bedside. Their questions were answered and they understand the plan. [id number]/[facility] #: [id number] MTDD
[2018-12-22 11:41] VITALS: BP 107/70
== END 2018-12-22 15:15 | disposition home or self-care (01) ==
LOC: ED 19:33 → SSU 12-22 00:20
PROVIDERS: ADMIT Surgery; ATTEND Surgery
DX: R10.31 Right lower quadrant pain (principal); R50.9 Fever, unspecified; I10 Essential (primary) hypertension; Z90.49 Acquired absence of other specified parts of digestive tract; R51 Headache; Z87.891 Personal history of nicotine dependence; Z98.890 Other specified postprocedural states
CPT/HCPCS: 36415; 71045; 74177; 80048; 80053; 81003; 81015; 83605; 85025; 85610; 85730; 86140; 86850; 86900; 86901; 87040; 96360; 96361; 99284; A9270-GY; G0378; Q9967

== ENCOUNTER 2018-12-24 12:18 | Observation (INO) | payer BC ==
--- OUTSIDE RECORDS SUMMARY | 2018-12-24 12:23 | XMS REPORT | Continuity of Care Document ---
:1980 External Reference #:[id number] Author Name Sun Rodrigez Care Team Providers Name Role Phone Eliana Palmer MD Primary Care Physician Unavailable Payers Date Identification Numbers Payment Provider Subscriber Policy Number: [id number] [employer] [facility] [address] PayID: [id number] [address] [address] [place] [address] Family History Date Family Member(s) Observation Comments General Non-Contributory Social History Type Date Description Comments Sex Unknown Marital Status Occupation Currently Working ETOH Use Drinks 1 Alcoholic -2 Beverage Per Day Tobacco Use Start: Unknown End: Patient is a former smoker quit age 23 Unknown Smoking Status Reviewed: 12/24/18 Patient is a former smoker quit age 23 Exercise Type/Frequency Exercises regularly Allergies, Adverse Reactions, Alerts Description No Known Drug Allergies Medications Active Medications SIG Qnty Indications Ordering Provider Date Doxycycline Hyclate 1 by mouth twice Unknown 100mg a day Tablets DR Amoxicillin/Clavulanat take one tablet q Unknown e Potassium 12 hours 875-125mg Tablets Vital Signs Date Vital Result Comment 12/24/2018 11:14am Height 67 inches 5'7" Weight 200.00 lb Heart Rate 100 /min BP Systolic Sitting 118 mmHg BP Diastolic Sitting 78 mmHg Respiratory Rate 18 /min Body Temperature 98.7 F BMI (Body Mass Index) 31.3 kg/m2 Procedures Date Code Description Status 12/16/2018 66030 Laparoscopy, Surgical, Appendectomy Completed Encounters Type Date Location Provider Dx Diagnosis Office Visit 12/16/2018 [facility] K35.30 Acute appendicitis 7:[facility] with loc peritonitis, w/o perf or gangr
[2018-12-24] MEDS ORDERED: Zosyn per Pharmacy* NOTE FOLLOW UP PRN (13:32)
[2018-12-24] MEDS ORDERED: HYDROmorphone INJ1* 1 MG/ML SYRINGE IV PRN (13:33)
[2018-12-24] MEDS ORDERED: Ondansetron INJ* 2 MG/ML VIAL IV PRN (13:33)
[2018-12-24] MEDS ORDERED: Acetaminophen TAB* 325 MG PO PRN (13:34)
[2018-12-24] MEDS ORDERED: ZOSYN 3.375 GM x ONE DOSE over 30 miuntes IVPB ×2 (14:00)
[2018-12-24] MEDS: oxyCODONE/Acetamin 5/325 MG* TAB PO PRN (17:23)
--- NOTE | 2018-12-24 18:42 | HP ---
Amended report to enter cosigning physician. ADMISSION HISTORY AND PHYSICAL: DATE OF ADMISSION: 12/24/18 ATTENDING PHYSICIAN: Herebrt Fischer MD* (dictated by Evangelina Melgoza NP). REASON FOR ADMISSION: Fever and worsening abdominal pain. HISTORY OF PRESENT ILLNESS: The patient is a generally healthy 38-year-old male who underwent a laparoscopic appendectomy on 12/16/[address] Fischer for acute suppurative appendicitis. The case noted no evidence of perforation or abscess and he spent 1 night in the hospital and was discharged home on Sunday , 12/17/18. He returned to the [facility] Emergency Department on 12/21/18 stating that his temperature at home had been as high as 102.2. He complained of right lower quadrant abdominal pain; a CAT scan of the abdomen and pelvis revealed moderate amount of hyperdense fluid below the cecum extending into the upper quadrant bilaterally as well as the pelvis. Dominant collection below the cecum measured up to 4.8 x 4.4 cm and findings were described as likely consistent with hemoperitoneum. The patient's white blood cell count at that time was 10.5, hemoglobin and hematocrit 10.7 and 30. CRP was 67. He was admitted overnight for observation by Dr. Hill; his diet was gradually increased and he was able to tolerate regular foods and he was discharged home on 12/22/18. On Sunday evening, his called the answering service because the patient complained of a "ripping sensation" in the right lower quadrant of the abdomen and subsequently any movement caused increased abdominal pain. He also described intense "soreness" in the rectal area while urinating. He described chills and sweating at home and his temperature was as high as 101.5. His urine was described as dark orange and he stated that he was having loose stools, but no frequent diarrhea. He came to [facility] office today and was seen by me; repeat labs revealed a white count of 10.5, hemoglobin was stable at 12.3, hematocrit 33. CRP was elevated to 221. He was afebrile in our office. He was pale and tachycardic with a heart rate of 100. Abdominal exam revealed hypoactive bowel sounds and exquisite tenderness with guarding in the right lower quadrant. Dr. Fischer was contacted by phone and plans were made to admit the patient for intravenous antibiotics, IV fluid resuscitation, observation, pain medication, and repeat labs in the morning. On afternoon rounds today, the patient is in room 415; he is diaphoretic and pale; he reports that his right lower quadrant pain is worse, rated at least an 8; his vital signs, temp 99.9, pulse 87, respiratory rate 16, O2 saturation on room air 98%, blood pressure 137/78. The patient and his are wondering if a CT of the abdomen and pelvis should be done tonight. I called Dr. Fischer and updated him and he ordered a CT of the abdomen and pelvis with oral and IV contrast to be done this evening. I updated the patient and his on the plan and they agreed. PAST MEDICAL HISTORY: Hypertension, but not currently on medication; migraine headaches. PAST SURGICAL HISTORY: Laparoscopic appendectomy. MEDICATIONS: Current medications include doxycycline. This is for malaria prophylaxis after recent trip to [facility]. ALLERGIES: No known drug allergies. FAMILY HISTORY: No known anesthesia complications, bleeding tendencies, or clotting disorders. SOCIAL HISTORY: He is and has 2 children. 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 He quit smoking at age 23. He drinks 1 to 2 alcoholic beverages per day and denies the use of other substances. REVIEW OF SYSTEMS: Fever and chills as described above. Respiratory: No chronic cough. No dyspnea on exertion. No wheezing. Cardiovascular: No anginal chest pain or palpitations. Gastrointestinal: As described in history of present illness. Genitourinary: As described in history of present illness. Endocrine: No diabetes or thyroid disease. General: No history of deep vein thrombosis or pulmonary embolism. No anesthesia complications. No bleeding tendencies. PHYSICAL EXAMINATION GENERAL: He is a well-developed, well-nourished male, complaining of worsening right lower quadrant abdominal pain. VITAL SIGNS: As described in history of present illness. HEENT: Oral mucosa moist. LUNGS: Breath sounds bilaterally clear and equal. HEART: Regular rate and rhythm. No murmurs or rubs. ABDOMEN: Hypoactive bowel sounds. Soft and slightly distended. Three well- healed laparoscopic incisions. No erythema or drainage; from the midline to the right lower quadrant. On palpation, the abdomen is exquisitely tender with guarding and mild rebound. GENITALIA: Exam deferred. RECTAL: Exam deferred. EXTREMITIES: Warm without edema or skin ulceration. NEUROLOGIC: Alert and oriented x3. IMPRESSION: Status post laparoscopic appendectomy on 12/16/18. He returns with worsening right lower quadrant abdominal pain and fever, but normal white blood cell count. His hemoglobin is stable at 12.3. He has remained hemodynamically stable and denies any dizziness at this time. PLAN: The patient has been admitted overnight for observation, IV fluids, IV antibiotics, pain management. Dr. Fischer has been updated on the patient's condition and a CT scan of the abdomen and pelvis with oral and IV contrast has been ordered for this evening. Further planning will be based on the results of the CAT scan and Dr. Fischer will follow him. TIME SPENT: 75 minutes with greater than 50% in [id number] history taking, patient examination, and coordination of care. PHILL MELGOZA NP [id number]/[facility] #: [id number] LYLA
[2018-12-24] MEDS ORDERED: Iohexol 300* (CONTRAST) 10 ML SDV IV ONE (19:38)
[2018-12-25] MEDS: oxyCODONE/Acetamin 5/325 MG* TAB PO PRN ×2 (04:33→23:48)
[2018-12-25] MEDS: NS 0.9% 1000 ML** 1,000 ML IV SCH ×3 (04:34→23:23)
[2018-12-25] MEDS: ZOSYN 3.375 GM Q8H per EXTENDED INFUSION IVPB SCH ×6 (04:41→20:52)
[2018-12-25 06:58] LABS: BUN/Creatinine Ratio 16.9 (8-20); C Reactive Protein 193.1 mg/L (<8.01); Calcium 9.2 mg/dL (8.6-10.3); EGFR African American 150.2 (>60); EGFR Non-African American 124.2 (>60)
[2018-12-25 08:04] LABS: ABS Eosinophils 0.2 10^3/ul (0-0.6); ABS Lymphocytes 1.2 10^3/ul (1.0-4.8); ABS Monocytes 0.7 10^3/ul (0-0.8); Eosinophil % 2.8 %; Hematocrit 28 % (42-52); Lymphocyte % 16.8 %; Mean Corpuscular HGB Conc 35 g/dL (31-36); Mean Corpuscular Hemoglobin 29 pg (27-31); Mean Corpuscular Volume 83 fL (80-94); Mean Platelet Volume 7.2 fL (7.4-10.4); Platelet Count 298 10^3/uL (150-450); Red Cell Distribution Width 13 % (10-15); White Blood Count 7.1 10^3/uL (3.5-10.8)
[2018-12-25 08:33] LABS: Potassium 4.2 mmol/L (3.5-5.0)
--- NOTE | 2018-12-25 11:03 | PN ---
Progress Note - Progress Note Date of Service: 12/25/18 SOAP: Subjective: []+flatus and bm no nausea intermittent rlq sharp pain, episodic, releaved by bm, improving Objective: [] Laboratory Last Values WBC 7.1 10^3/uL (3.5-10.8) 12/25/18 07:45 RBC 3.40 10^6 /uL (4.18-5.48) L 12/25/18 07:45 Hgb 10.0 g/dL (14.0-18.0) L 12/25/18 07:45 Hct 28 % (42-52) L 12/25/18 07:45 MCV 83 fL (80-94) 12/25/18 07:45 MCH 29 pg (27-31) 12/25/18 07:45 MCHC 35 g/dL (31-36) 12/25/18 07:45 RDW 13 % (10-15) 12/25/18 07:45 Plt Count 298 10^3/uL (150-450) 12/25/18 07:45 MPV 7.2 fL (7.4-10.4) L 12/25/18 07:45 Neut % (Auto) 70.2 % 12/25/18 07:45 Lymph % (Auto) 16.8 % 12/25/18 07:45 [place] % (Auto) 9.8 % 12/25/18 07:45 Eos % (Auto) 2.8 % 12/25/18 07:45 Baso % (Auto) 0.4 % 12/25/18 07:45 Absolute Neuts (auto) 5.0 10^3/ul (1.5-7.7) 12/25/18 07:45 Absolute Lymphs (auto) 1.2 10^3/ul (1.0-4.8) 12/25/18 07:45 Absolute Monos (auto) 0.7 10^3/ul (0-0.8) 12/25/18 07:45 Absolute Eos (auto) 0.2 10^3/ul (0-0.6) 12/25/18 07:45 Absolute Basos (auto) 0.0 10^3/ul (0-0.2) 12/25/18 07:45 Absolute Nucleated RBC 0.0 10^3/ul 12/25/18 07:45 Nucleated RBC % 0.0 12/25/18 07:45 Sodium 137 mmol/L (135-145) 12/25/18 05:42 Potassium 4.2 mmol/L (3.5-5.0) 12/25/18 05:42 Chloride 103 mmol/L (101-111) 12/25/18 05:42 Carbon Dioxide 25 mmol/L (22-32) 12/25/18 05:42 Anion Gap 9 mmol/L (2-11) 12/25/18 05:42 BUN 12 mg/dL (6-24) 12/25/18 05:42 Creatinine 0.71 mg/dL (0.67-1.17) 12/25/18 05:42 Est GFR ( Amer) 150.2 (>60) 12/25/18 05:42 Est GFR (Non-Af Amer) 124.2 (>60) 12/25/18 05:42 BUN/Creatinine Ratio 16.9 (8-20) 12/25/18 05:42 Glucose 101 mg/dL (70-100) H 12/25/18 05:42 Calcium 9.2 mg/dL (8.6-10.3) 12/25/18 05:42 C-Reactive Protein 193.10 mg/L (<8.01) H 12/25/18 05:42 Temp Pulse Resp BP Pulse Ox 98.1 F 74 16 108/61 97 12/25/18 08:00 12/25/18 08:00 12/25/18 08:17 12/25/18 08:00 12/25/18 08:00 incisions cdi, abdomen soft, tender rlq Assessment: [] stable, improving, no abscess on ct-improving inflammation nof TI/operative area Plan: []cont pain meds, multiple small meals, cont abx for now, home soon
[2018-12-25] MEDS: Ketorolac INJ* 30 MG/ML 1 ML VIAL IV PUSH PRN (12:52)
[2018-12-26] MEDS: ZOSYN 3.375 GM Q8H per EXTENDED INFUSION IVPB SCH ×2 (04:08)
[2018-12-26] MEDS: Ketorolac INJ* 30 MG/ML 1 ML VIAL IV PUSH PRN (04:12)
[2018-12-26] MEDS: NS 0.9% 1000 ML** 1,000 ML IV SCH (08:55)
[2018-12-26 12:49] VITALS: BP 145/84
--- NOTE | 2018-12-26 16:48 | PN ---
Progress Note - Progress Note Date of Service: 12/26/18 Note: S: Late entry; seen this a.m. Had some pain last night; only needed Ketorolac and Percocet. Pain was similar to previous, RLQ. No assoc N/V. Angelica'd breakfast well. No BM since yesterday pm O: Vital Signs - 8 hr 12/26/18 12/26/18 08:51 12:48 Temperature 97.7 F Pulse Rate 80 Respiratory 18 20 Rate Blood Pressure 145/84 (mmHg) O2 Sat by Pulse 99 Oximetry Intake and Output Last 24 Hours 12/24/18 12/25/18 12/26/18 12/27/18 06:59 06:59 06:59 06:59 Intake Total 750 3056 1280 Output Total 1375 Balance 750 1681 1280 Weight 205 lb 7 oz Intake: IV Fluids 1416 980 IVPB 210 100 Oral 750 1430 200 Output: Urine 1375 Other: # Voids 0 0 Gen: appears comfortable; NAD Heart: reg Lungs: clear Abd: obese; lap sites ok; +BS; soft; mild to moderate tenderness RLQ w/ mass or peritoneal signs. No labs today. A: s/p lap appendectomy for acute appendicitis, w/ postop intra-abd bleed; stable, improving P: home today on previous Rx for Augmentin; instructions reviewed; f/u next wk in office
--- NOTE | 2018-12-26 21:52 | DS ---
CC: Dr. Eliana Palmer at [facility] * DISCHARGE SUMMARY: DATE OF ADMISSION: 12/24/18 DATE OF DISCHARGE: 12/26/18 ATTENDING SURGEON: Dr. Herbert Fischer.* (DICTATED BY YAMILET VILCHIS) HOSPITAL COURSE: Please refer to admission history and physical from 12/24/18. Briefly, the patient had undergone laparoscopic appendectomy for acute suppurative but non-ruptured appendicitis on 12/16/[address] Fischer. He had been admitted on 12/21/18 and then discharged on 12/22/18 for what appeared to be hematoma in the pericecal area with free fluid in the perihepatic and perisplenic regions. He did have a drop in his hemoglobin from preop 15.3 to 11.6 on 12/21/18. Thereafter, this remained fairly stable. He was readmitted on 12/24/18 with fever and chills and increased right lower quadrant pain. This has improved over the past 48 hours, such that he was able to manage well without IV narcotics last night. He is tolerating diet well. His T-max was 100 in the past 24 hours, but down to 98.2 this morning. His other vital signs are stable. See separate progress note from the same date. He received IV antibiotics during the current hospital stay. I discussed his clinical course with him and his who is present. We decided that he could likely manage well enough at home and will resume the previously prescribed Augmentin prescription. He has been using very little narcotic and does have a pre- existing prescription for Percocet. Instructions were reviewed. He will return for a recheck in our office on 01/01/19. He is discharged to home in stable condition. YAMILET VILCHIS [id number]/[facility] #: [id number] [facility]ENTERAsaf
== END 2018-12-26 12:45 | disposition home or self-care (01) ==
LOC: MED 12:20
PROVIDERS: ADMIT Surgery; ATTEND Surgery
DX: R10.9 Unspecified abdominal pain (principal); K66.1 Hemoperitoneum; R50.9 Fever, unspecified; I10 Essential (primary) hypertension; Z90.89 Acquired absence of other organs
CPT/HCPCS: 36415; 74177; 80048; 85025; 86140; 96374; 96375; A9270-GY; G0378; J1170; J1885; J2543; Q9967